=== PATIENT | male | born 1970 | race Caucasian/White ===

== ENCOUNTER 2021-02-17 05:09 | Emergency (ER) | payer SELFPAY ==
[2021-02-17] VITALS (8 sets, daily range): BP systolic 122–186; BP diastolic 62–128; PULSE 67–85; RESP 16–22; TEMP 37; O2SAT 88–98; BMI 35.4
--- NOTE | 2021-02-17 05:45 | ECG_ITS ---
[facility] Test Date: 2021-02-17 Pat Name: David Patel Department: Room: Gender: Male [employer]: : 1970 Requested By: Hernan Suarez Order Number: [id number] Sharri MD: River Salazar M.D. Measurements Intervals [place] Rate: 85 P: -40 WA: 138 QRS: 17 QRSD: 98 T: 127 QT: 387 QTc: 462 Interpretive Statements SINUS RHYTHM POSSIBLE RIGHT VENTRICULAR CONDUCTION DELAY [RSR (QR) IN V1/V2] MODERATE T-WAVE ABNORMALITY, CONSIDER LATERAL ISCHEMIA [-0.1+ mV T-WAVE IN I/aVL/V5/V6] No previous ECG available for comparison Electronically Signed On 02-17-2021 21:10:06 CDT by River Salazar M.D. [id number]
--- NOTE | 2021-02-17 05:45 | XRR_ITS ---
PROCEDURE INFORMATION: Exam: XR Chest Exam date and time: 02/17/2021 5:45 AM Age: 50 years old Clinical indication: Other: Epigastric pain; Additional info: Cp TECHNIQUE: Imaging protocol: XR of the chest. Views: 1 view. Total images: 1 COMPARISON: CT abdomen pelvis w con* [id number] 02/17/2021 6:13 AM FINDINGS: Lungs: See Heart/Mediastinum finding. Pleural spaces: Unremarkable. No pleural effusion. No pneumothorax. Heart/Mediastinum: Low lung volumes are present, accentuating cardiac size and pulmonary markings. Bones/joints: Unremarkable. XR/XR chest 1V portable [id number] IMPRESSION: Low lung volumes are present, accentuating cardiac size and pulmonary markings.
--- NOTE | 2021-02-17 05:45 | CTR_ITS ---
PROCEDURE INFORMATION: Exam: CT Abdomen And Pelvis With Contrast Exam date and time: 02/17/2021 5:45 AM Age: 50 years old Clinical indication: Abdominal pain; Localized; Upper; Additional info: Epigastric pain TECHNIQUE: Imaging protocol: Computed tomography of the abdomen and pelvis with contrast. Total images: 262 Radiation optimization: All CT scans at this facility use at least one of these dose optimization techniques: automated exposure control; mA and/or kV adjustment per patient size (includes targeted exams where dose is matched to clinical indication); or iterative reconstruction. Contrast material: OMNI 300; Contrast volume: 95 ml; Contrast route: INTRAVENOUS (IV); COMPARISON: No relevant prior studies available. RADIATION DOSE METRICS: Total DLP (mGy-cm): 1839.81 FINDINGS: Liver: Normal. No mass. Gallbladder and bile ducts: Normal. No calcified stones. No ductal dilation. Pancreas: Normal. No ductal dilation. Spleen: Normal. No splenomegaly. Adrenal glands: Normal. No mass. Kidneys and ureters: 2.1 cm incidental right renal cyst, requiring no further evaluation. Stomach and bowel: There are a few colonic diverticuli present but no evidence of diverticulitis. Appendix: The appendix has a normal size and configuration. No periappendiceal inflammatory changes are detected. No appendicolith is seen. Intraperitoneal space: Unremarkable. No free air. No significant fluid collection. Vasculature: Incidental phleboliths noted. Lymph nodes: Unremarkable. No enlarged lymph nodes. Urinary bladder: Unremarkable as visualized. Reproductive: Unremarkable as visualized. Bones/joints: Spinal degenerative changes are evident. Soft tissues: Metallic density seen in the 3rd portion of the duodenum felt to represent ingested foreign body. CT/CT abdomen pelvis w con* [id number] IMPRESSION: 1. Metallic density seen in the 3rd portion of the duodenum felt to represent ingested foreign body. 2. No acute process identified. Radiation Dose CTDIVOL = (mGy): DLP = 1839.81 (mGy-cm)
--- NOTE | 2021-02-17 05:48 | W.ED.CHESTPA ---
Documented by User: Hernan Chapa DO 02/17/21 06:12 HPI - Chest Pain General: Chief Complaint: Chest Pain Stated Complaint: abd pain; delirium Time Seen by Provider: 02/17/21 05:14 History of Present Illness: HPI narrative: 50-year-old male evidently with a coronary disease history. He notes that 5 years ago he had angioplasty in [place]. He reports chest discomfort the last couple of days. He says that he has been under a lot of stress. He is also noted epigastric pain has been increasing for the past few weeks. No fever, no cough, no trouble breathing. He notes that he is supposed to be on medication, but has been unable to fill it. MD complaint: chest pain Pertinent past history: coronary artery disease Onset (ago): day(s) Timing of current episode: constant Prior episodes: Yes Onset: during rest Pain location: substernal and epigastric Pain radiation: none Severity: moderate Quality: aching and sharp Relieving factors: nothing Associated symptoms: Reports abdominal pain; Deny dyspnea, fever(s), nausea, palpitations or vomiting Review of Systems Const: Denies: fever(s) ENMT: Denies: throat pain Card: Reports: chest pain; Denies: palpitations Resp: Denies: dyspnea, productive cough or non-productive cough GI: Reports: abdominal pain; Denies: nausea or vomiting Neuro: Denies: headache(s) PFSH ED PFSH: Social History (Updated 06/25/19 @ 16:27 by Claudia Jarrett LPN) Smoking and tobacco status: former smoker Physical Exam Const: COMMON NORMALS: patient oriented x3 GENERAL APPEARANCE: cooperative, anxious and lethargic; not frail appearing ORIENTATION/CONSCIOUSNESS: Yes lethargic HENMT: COMMON NORMALS: normocephalic HEAD & SCALP: normocephalic Eye: COMMON NORMALS: Equal, round and reactive pupils present and EOMs intact bilaterally PUPIL: Yes Equal, round and reactive pupils present Chest: COMMONS NORMALS: normal inspection of the chest Resp: COMMON NORMALS: normal respiratory effort, No use of accessory muscles and clear to auscultation bilaterally AUSCULTATION: clear to auscultation bilaterally Cardio: COMMON NORMALS: regular rate and regular rhythm RATE: regular rate RHYTHM: regular rhythm GI: COMMON NORMALS: Normal to inspection, nondistended, normoactive bowel sounds present and Soft to palpation PALPATION: Yes Soft to palpation and Yes Tenderness to palpation present (GI) (Epigastric) Neuro: COMMON NORMALS: patient oriented x3 SENSORIUM/ORIENTATION: Yes lethargic Course Vital Signs: Vital signs: Vital Signs Temperature 98.6 F 02/17/21 05:16 Pulse Rate 85 02/17/21 05:16 Respiratory Rate 22 H 02/17/21 05:57 Blood Pressure 138/90 02/17/21 06:30 Pulse Oximetry 88 L 02/17/21 06:30 MDM - Chest Pain MDM Narrative: Medical decision making narrative: 50-year-old male with a history of coronary disease. He has been noncompliant with medication, as he states he is not been able to see a PCP he reports chest pain for 2 days. He also reports epigastric pain and tenderness he states to me in the room doc if anything happens, do not bring me back . He is quite anxious on exam. He has pending lab work, EKG, and CT. he will be checked out to Dr. Lawrence at shift change. Lab Data: Labs: Lab Results 02/17/21 02/17/21 02/17/21 05:30 05:30 05:30 WBC 6.6 10^3/uL 10^3/ uL (4.0-10.0) RBC 4.79 10^6/uL 10^6 /uL (4.1-5.3) Hgb 13.8 g/dL g/dL (11.7-16.6) Hct 43.1 % % (42.0-52.0) MCV 90.0 fl fl (80-94) MCH 28.8 pg pg (28.0-34.0) MCHC 32.0 g/dL g/dL (30.0-36.0) RDW 13.7 % % (12.1-15.1) Plt Count 269 10^3/cmm 10^3 /cmm (130-400) MPV 8.7 fL fL (7.4-10.4) Neut % (Auto) 68.2 % % Lymph % (Auto) 22.9 % % [place] % (Auto) 6.9 % % Eos % (Auto) 0.8 % % Baso % (Auto) 0.6 % % Neut # (Auto) 4.53 10^3/uL 10^3 /uL (1.8-7.7) Lymph # (Auto) 1.5 10^3/uL 10^3/ uL (0.8-4.8) [place] # (Auto) 0.5 10^3/uL 10^3/ uL (0.2-0.9) Eos # (Auto) 0.1 10^3/uL 10^3/ uL (0.0-0.8) Baso # (Auto) 0.0 10^3/uL 10^3/ uL (0.0-0.1) Nucleated RBC % (a uto) 0 % % Nucleated RBCs # 0.0 /100WBC /100W BC PT 13.90 SECONDS SEC ONDS (12.1-14.9) INR 1.04 (0.8-1.2) APTT 26.8 SECONDS SECO NDS (23.9-36.7) Sodium 135 mmol/L L mmol /L (136-145) Potassium 3.7 mmol/L mmol/L (3.5-5.1) Chloride 102 mmol/L mmol/L (98-107) Carbon Dioxide 22 mmol/L mmol/L (22-29) Anion Gap 14.7 (5-19) BUN 13 mg/dL mg/dL (6-20) Creatinine 0.7 mg/dL mg/dL (0.7-1.2) GFR Calculation 118.9 mL/min mL/m in (90-130) Glucose 117 mg/dL H mg/dL (65-115) Calculated Osmolal ity 281 mOsm/kg L mOs m/kg (285-295) Calcium 8.9 mg/dL mg/dL (8.5-10.5) Total Bilirubin 0.5 mg/dL mg/dL (0.15-1.2) AST 20 U/L U/L (0-40) ALT 20 U/L U/L (0-41) Alkaline Phosphata se 74 IU/L IU/L (40-130) Creatine Kinase 378 U/L H* U/L (39-308) Troponin T Baselin e Troponin T 120 Min habematolel Delta Troponin T NT-Pro-B Natriuret Pep 60 pg/mL pg/mL (0-125) Total Protein 7.2 g/dL g/dL (6.6-8.7) Albumin 4.1 g/dL g/dL (3.5-5.2) Globulin 3.1 g/dL g/dL (1.3-4.6) Urine Color Urine Appearance Urine pH Ur Specific Gravit y Urine Protein Urine Glucose (UA) Urine Ketones Urine Blood Urine Nitrate Urine Bilirubin Urine Urobilinogen Ur Leukocyte Romana ase Urine Opiates Scre en Ur Barbiturates Sc reen Ur Phencyclidine S crn Ur Amphetamines Sc reen U Benzodiazepines Scrn Urine Cocaine Scre en U Marijuana (THC) Screen Ethyl Alcohol < 10 mg/dL mg/dL (0-10) 02/17/21 02/17/21 02/17/21 05:30 07:56 08:00 WBC RBC Hgb Hct MCV MCH MCHC RDW Plt Count MPV Neut % (Auto) Lymph % (Auto) [place] % (Auto) Eos % (Auto) Baso % (Auto) Neut # (Auto) Lymph # (Auto) [place] # (Auto) Eos # (Auto) Baso # (Auto) Nucleated RBC % (a uto) Nucleated RBCs # PT INR APTT Sodium Potassium Chloride Carbon Dioxide Anion Gap BUN Creatinine GFR Calculation Glucose Calculated Osmolal ity Calcium Total Bilirubin AST ALT Alkaline Phosphata se Creatine Kinase Troponin T Baselin e 12 ng/L ng/L (0-15) Troponin T 120 Min habematolel 11.75 ng/L ng/L (0-15) Delta Troponin T -0.25 ABS# L ABS# (0-10) NT-Pro-B Natriuret Pep Total Protein Albumin Globulin Urine Color Straw (Yellow) Urine Appearance Clear (CLEAR) Urine pH 5 (5-7) Ur Specific Gravit y 1.025 (1.005-1.030) Urine Protein Neg (Negative) Urine Glucose (UA) Norm (Normal) Urine Ketones Negative (Negative) Urine Blood Neg (Negative) Urine Nitrate Negative (Negative) Urine Bilirubin Neg (Negative) Urine Urobilinogen Norm mg/dL mg/dL (Negative) Ur Leukocyte Romana ase Negative (Negative) Urine Opiates Scre en Ur Barbiturates Sc reen Ur Phencyclidine S crn Ur Amphetamines Sc reen U Benzodiazepines Scrn Urine Cocaine Scre en U Marijuana (THC) Screen Ethyl Alcohol 02/17/21 08:00 WBC RBC Hgb Hct MCV MCH MCHC RDW Plt Count MPV Neut % (Auto) Lymph % (Auto) [place] % (Auto) Eos % (Auto) Baso % (Auto) Neut # (Auto) Lymph # (Auto) [place] # (Auto) Eos # (Auto) Baso # (Auto) Nucleated RBC % (a uto) Nucleated RBCs # PT INR APTT Sodium Potassium Chloride Carbon Dioxide Anion Gap BUN Creatinine GFR Calculation Glucose Calculated Osmolal ity Calcium Total Bilirubin AST ALT Alkaline Phosphata se Creatine Kinase Troponin T Baselin e Troponin T 120 Min habematolel Delta Troponin T NT-Pro-B Natriuret Pep Total Protein Albumin Globulin Urine Color Urine Appearance Urine pH Ur Specific Gravit y Urine Protein Urine Glucose (UA) Urine Ketones Urine Blood Urine Nitrate Urine Bilirubin Urine Urobilinogen Ur Leukocyte Romana ase Urine Opiates Scre en Negative ng/mL ng /mL (Negative) Ur Barbiturates Sc reen Negative ng/mL ng /mL (Negative) Ur Phencyclidine S crn Negative ng/mL ng /mL (Negative) Ur Amphetamines Sc reen Positive ng/mL H ng/mL (Negative) U Benzodiazepines Scrn Negative ng/mL ng /mL (Negative) Urine Cocaine Scre en Negative ng/mL ng /mL (Negative) U Marijuana (THC) Screen Negative ng/mL ng /mL (Negative) Ethyl Alcohol Discharge Plan Discharge Patient Disposition: Home Clinical Impression: Chest pain, Hematemesis, Foreign body ingestion Condition: Stable Prescriptions: New aspirin 81 mg tablet,delayed release (DR/EC) 81 mg PO DAILY Qty: 30 RF: 0 isosorbide mononitrate 30 mg tablet extended release 24 hr 30 mg PO DAILY Qty: 30 RF: 1 Protonix 40 mg tablet,delayed release (DR/EC) 40 mg PO DAILY 56 Days RF: 0 nitroglycerin 0.4 mg tablet, sublingual 0.4 mg sublingual Q5M PRN (Reason: chest pain) Qty: 30 RF: 0 Discharge Orders: Discharge ED (Routine); Ordered 02/17/21 Ordered By: Tone Lawrence Discharge Diet: Clear Liquid Patient Instructions: Opioid Safety Activity Restrictions/Additional Instructions: Clear liquid diet for 24 to 48 hours. Case management will call you to make arrangements for a stress test as well as referral to surgery for an EGD. If you have any worsening or change or recurrence of symptoms return to emergency room immediately. Sign Out Sign Out Data: Patient Sign Out occurred on 02/17/21 at 06:30. Patient's care was discussed, and care was transferred from to Tone Lawrence DO. Coding Level of Care Code ED Customs Inspector for Chg Fwd Exam Detailed Documented by User: Tone Lawrence DO 02/17/21 08:48 HPI - Chest Pain General: Chief Complaint: Chest Pain Stated Complaint: abd pain; delirium Time Seen by Provider: 02/17/21 05:14 PFSH ED PFSH: Social History (Updated 06/25/19 @ 16:27 by Claudia Jarrett LPN) Smoking and tobacco status: former smoker Course Vital Signs: Vital signs: Vital Signs Temperature 98.6 F 02/17/21 05:16 Pulse Rate 85 02/17/21 05:16 Respiratory Rate 22 H 02/17/21 05:57 Blood Pressure 138/90 02/17/21 06:30 Pulse Oximetry 88 L 02/17/21 06:30 MDM - Chest Pain MDM Narrative: Medical decision making narrative: Reviewed labs and history on the patient. Also reviewed imaging and EKGs. Nothing acute on EKG his troponins are negative. In talking the patient has a known history of coronary disease previous stenting. Was about 4 5 years ago has not had any evaluation since. Lately 2-3 times a week he will have chest pain sometimes while at rest sometimes with exertion he had been using sublingual nitro for which causes it to resolve other times what since he ran out of the sublingual nitro he just sits and rest it will go away in 20 to 30 minutes. Advised the patient he should be admitted for evaluation he declines. Reviewed with him why is important and the risks of not being evaluated he still wants to go home and. He was reassured and encouraged at any point if he has recurrence of symptoms to return. Aubrie start him on Imdur 30 mg daily have him start taking a baby aspirin daily and also refilled his sublingual nitroglycerin. In addition to this he had reported some very scant hematemesis. His hemoglobin is stable and his BUN is not elevated on think he has any evidence of active bleeding. We will put him on a clear liquid diet have him start Protonix and set him up to get an EGD with general surgery next week. If he has any increasing hematemesis he should return as well. Also note at the time of discharge there is a notation on the chart on the vitals that the patient had 88% O2 sat on room air this was an error his O2 sat has remained in mid and upper 90s throughout his stay believe is a typo and he was actually at 98%. Reviewed with the nurse she had not noted any hypoxia during his stay either. Incidental finding on CT of ingested foreign body appears to be an air palate discussed with patient. This should pass spontaneously through the GI tract no intervention needed Lab Data: Labs: Lab Results 02/17/21 02/17/21 02/17/21 05:30 05:30 05:30 WBC 6.6 10^3/uL 10^3/ uL (4.0-10.0) RBC 4.79 10^6/uL 10^6 /uL (4.1-5.3) Hgb 13.8 g/dL g/dL (11.7-16.6) Hct 43.1 % % (42.0-52.0) MCV 90.0 fl fl (80-94) MCH 28.8 pg pg (28.0-34.0) MCHC 32.0 g/dL g/dL (30.0-36.0) RDW 13.7 % % (12.1-15.1) Plt Count 269 10^3/cmm 10^3 /cmm (130-400) MPV 8.7 fL fL (7.4-10.4) Neut % (Auto) 68.2 % % Lymph % (Auto) 22.9 % % [place] % (Auto) 6.9 % % Eos % (Auto) 0.8 % % Baso % (Auto) 0.6 % % Neut # (Auto) 4.53 10^3/uL 10^3 /uL (1.8-7.7) Lymph # (Auto) 1.5 10^3/uL 10^3/ uL (0.8-4.8) [place] # (Auto) 0.5 10^3/uL 10^3/ uL (0.2-0.9) Eos # (Auto) 0.1 10^3/uL 10^3/ uL (0.0-0.8) Baso # (Auto) 0.0 10^3/uL 10^3/ uL (0.0-0.1) Nucleated RBC % (a uto) 0 % % Nucleated RBCs # 0.0 /100WBC /100W BC PT 13.90 SECONDS SEC ONDS (12.1-14.9) INR 1.04 (0.8-1.2) APTT 26.8 SECONDS SECO NDS (23.9-36.7) Sodium 135 mmol/L L mmol /L (136-145) Potassium 3.7 mmol/L mmol/L (3.5-5.1) Chloride 102 mmol/L mmol/L (98-107) Carbon Dioxide 22 mmol/L mmol/L (22-29) Anion Gap 14.7 (5-19) BUN 13 mg/dL mg/dL (6-20) Creatinine 0.7 mg/dL mg/dL (0.7-1.2) GFR Calculation 118.9 mL/min mL/m in (90-130) Glucose 117 mg/dL H mg/dL (65-115) Calculated Osmolal ity 281 mOsm/kg L mOs m/kg (285-295) Calcium 8.9 mg/dL mg/dL (8.5-10.5) Total Bilirubin 0.5 mg/dL mg/dL (0.15-1.2) AST 20 U/L U/L (0-40) ALT 20 U/L U/L (0-41) Alkaline Phosphata se 74 IU/L IU/L (40-130) Creatine Kinase 378 U/L H* U/L (39-308) Troponin T Baselin e Troponin T 120 Min habematolel Delta Troponin T NT-Pro-B Natriuret Pep 60 pg/mL pg/mL (0-125) Total Protein 7.2 g/dL g/dL (6.6-8.7) Albumin 4.1 g/dL g/dL (3.5-5.2) Globulin 3.1 g/dL g/dL (1.3-4.6) Urine Color Urine Appearance Urine pH Ur Specific Gravit y Urine Protein Urine Glucose (UA) Urine Ketones Urine Blood Urine Nitrate Urine Bilirubin Urine Urobilinogen Ur Leukocyte Romana ase Urine Opiates Scre en Ur Barbiturates Sc reen Ur Phencyclidine S crn Ur Amphetamines Sc reen U Benzodiazepines Scrn Urine Cocaine Scre en U Marijuana (THC) Screen Ethyl Alcohol < 10 mg/dL mg/dL (0-10) 02/17/21 02/17/21 02/17/21 05:30 07:56 08:00 WBC RBC Hgb Hct MCV MCH MCHC RDW Plt Count MPV Neut % (Auto) Lymph % (Auto) [place] % (Auto) Eos % (Auto) Baso % (Auto) Neut # (Auto) Lymph # (Auto) [place] # (Auto) Eos # (Auto) Baso # (Auto) Nucleated RBC % (a uto) Nucleated RBCs # PT INR APTT Sodium Potassium Chloride Carbon Dioxide Anion Gap BUN Creatinine GFR Calculation Glucose Calculated Osmolal ity Calcium Total Bilirubin AST ALT Alkaline Phosphata se Creatine Kinase Troponin T Baselin e 12 ng/L ng/L (0-15) Troponin T 120 Min habematolel 11.75 ng/L ng/L (0-15) Delta Troponin T -0.25 ABS# L ABS# (0-10) NT-Pro-B Natriuret Pep Total Protein Albumin Globulin Urine Color Straw (Yellow) Urine Appearance Clear (CLEAR) Urine pH 5 (5-7) Ur Specific Gravit y 1.025 (1.005-1.030) Urine Protein Neg (Negative) Urine Glucose (UA) Norm (Normal) Urine Ketones Negative (Negative) Urine Blood Neg (Negative) Urine Nitrate Negative (Negative) Urine Bilirubin Neg (Negative) Urine Urobilinogen Norm mg/dL mg/dL (Negative) Ur Leukocyte Romana ase Negative (Negative) Urine Opiates Scre en Ur Barbiturates Sc reen Ur Phencyclidine S crn Ur Amphetamines Sc reen U Benzodiazepines Scrn Urine Cocaine Scre en U Marijuana (THC) Screen Ethyl Alcohol 02/17/21 08:00 WBC RBC Hgb Hct MCV MCH MCHC RDW Plt Count MPV Neut % (Auto) Lymph % (Auto) [place] % (Auto) Eos % (Auto) Baso % (Auto) Neut # (Auto) Lymph # (Auto) [place] # (Auto) Eos # (Auto) Baso # (Auto) Nucleated RBC % (a uto) Nucleated RBCs # PT INR APTT Sodium Potassium Chloride Carbon Dioxide Anion Gap BUN Creatinine GFR Calculation Glucose Calculated Osmolal ity Calcium Total Bilirubin AST ALT Alkaline Phosphata se Creatine Kinase Troponin T Baselin e Troponin T 120 Min habematolel Delta Troponin T NT-Pro-B Natriuret Pep Total Protein Albumin Globulin Urine Color Urine Appearance Urine pH Ur Specific Gravit y Urine Protein Urine Glucose (UA) Urine Ketones Urine Blood Urine Nitrate Urine Bilirubin Urine Urobilinogen Ur Leukocyte Romana ase Urine Opiates Scre en Negative ng/mL ng /mL (Negative) Ur Barbiturates Sc reen Negative ng/mL ng /mL (Negative) Ur Phencyclidine S crn Negative ng/mL ng /mL (Negative) Ur Amphetamines Sc reen Positive ng/mL H ng/mL (Negative) U Benzodiazepines Scrn Negative ng/mL ng /mL (Negative) Urine Cocaine Scre en Negative ng/mL ng /mL (Negative) U Marijuana (THC) Screen Negative ng/mL ng /mL (Negative) Ethyl Alcohol Discharge Plan Discharge Patient Disposition: Home Clinical Impression: Chest pain, Hematemesis, Foreign body ingestion Condition: Stable Prescriptions: New aspirin 81 mg tablet,delayed release (DR/EC) 81 mg PO DAILY Qty: 30 RF: 0 isosorbide mononitrate 30 mg tablet extended release 24 hr 30 mg PO DAILY Qty: 30 RF: 1 Protonix 40 mg tablet,delayed release (DR/EC) 40 mg PO DAILY 56 Days RF: 0 nitroglycerin 0.4 mg tablet, sublingual 0.4 mg sublingual Q5M PRN (Reason: chest pain) Qty: 30 RF: 0 Discharge Orders: Discharge ED (Routine); Ordered 02/17/21 Ordered By: Tone Lawrence Discharge Diet: Clear Liquid Patient Instructions: Opioid Safety Activity Restrictions/Additional Instructions: Clear liquid diet for 24 to 48 hours. Case management will call you to make arrangements for a stress test as well as referral to surgery for an EGD. If you have any worsening or change or recurrence of symptoms return to emergency room immediately. Sign Out Sign Out Data: Patient Sign Out occurred on 02/17/21 at 06:30. Patient's care was discussed, and care was transferred from to Tone Lawrence DO. Coding Level of Care Code ED Customs Inspector for Chg Fwd Exam Detailed
[2021-02-17 05:52] LABS: Basophils % 0.6 %; Eosinophils # 0.1 10^3/uL (0.0-0.8); Eosinophils % 0.8 %; Hematocrit 43.1 % (42.0-52.0); Hemoglobin 13.8 g/dL (11.7-16.6); Lymphocytes # 1.5 10^3/uL (0.8-4.8); Lymphocytes % 22.9 %; Mean Corpuscular Hemoglobin 28.8 pg (28.0-34.0); Mean Platelet Volume 8.7 fL (7.4-10.4); Monocytes # 0.5 10^3/uL (0.2-0.9); Monocytes % 6.9 %; Neutrophils # 4.53 10^3/uL (1.8-7.7); Neutrophils % 68.2 %; Nucleated Red Blood Cells % 0 %; Platelet Count 269 10^3/cmm (130-400); Red Blood Count 4.79 10^6/uL (4.1-5.3); Red Cell Distribution Width 13.7 % (12.1-15.1); White Blood Count 6.6 10^3/uL (4.0-10.0)
[2021-02-17 06:03] LABS: INR 1.04 (0.8-1.2)
[2021-02-17 06:04] LABS: Partial Thromboplastin Time 26.8 SECONDS (23.9-36.7)
[2021-02-17] MEDS: nitroglycerin 1 gm/inch oint Pkt 2 INCH TOPICAL (06:04)
[2021-02-17] MEDS: lidocaine 2% viscous 15 ML, aluminum-mag hydrox-simethicon 30 ML, sucralfate oral liq 1 GM PO (06:04)
[2021-02-17] MEDS: labetalol 5 mg/mL SDV 20mL 20 MG IVP (06:05)
[2021-02-17 06:12] LABS: Troponin(5th) Baseline 12 ng/L (0-15)
[2021-02-17] MEDS: iohexol 300 mg/mL 100 mL Btl IV (06:15)
[2021-02-17 06:19] LABS: Alanine Aminotransferase 20 U/L (0-41); Albumin Level 4.1 g/dL (3.5-5.2); Alkaline Phosphatase 74 IU/L (40-130); Anion Gap 14.7 (5-19); Aspartate Amino Transferase 20 U/L (0-40); Blood Urea Nitrogen 13 mg/dL (6-20); Calcium 8.9 mg/dL (8.5-10.5); Carbon Dioxide 22 mmol/L (22-29); Chloride 102 mmol/L (98-107); Creatinine Clr Calc Pharmacy 151.8029; Globulin 3.1 g/dL (1.3-4.6); Glomerular Filtration Rate 118.9 mL/min (90-130); Glucose 117 mg/dL (65-115); NT Pro B Type Natriuretic Pept 60 pg/mL (0-125); Osmolality Calculated 281 mOsm/kg (285-295); Potassium 3.7 mmol/L (3.5-5.1); Sodium 135 mmol/L (136-145); Total Bilirubin 0.5 mg/dL (0.15-1.2); Total Protein 7.2 g/dL (6.6-8.7)
[2021-02-17 06:20] LABS: Alcohol Level < 10 mg/dL (0-10); Creatine Phosphokinase 378 U/L (39-308)
[2021-02-17] MEDS: sodium chloride 0.9% 1,000 ML 999 ML IV (07:10)
--- NOTE | 2021-02-17 07:23 | PC.NURSE ---
Introduced self to pt and SO and explained that this nurse would be taking over his care. Pt SO stated pt did not want to be here anymore, that he just wanted his meds and to go home . informed pt that NS had been ordered for him and that it would help with his heart rate. he asked how long it would take then stated he would stay to receive hydration. th
--- NOTE | 2021-02-17 07:45 | ECG_ITS ---
[facility] Test Date: 2021-02-17 Pat Name: David Patel Department: Room: Gender: Male Mobile Solutions Architect: : 1970 Requested By: Hernan Suarez Order Number: [id number] Sharri MD: River Salazar M.D. Measurements Intervals [place] Rate: 67 P: 54 MD: 140 QRS: 35 QRSD: 98 T: 142 QT: 454 QTc: 480 Interpretive Statements SINUS RHYTHM WITH FREQUENT ECTOPIC PREMATURE COMPLEXES POSSIBLE RIGHT VENTRICULAR CONDUCTION DELAY [RSR (QR) IN V1/V2] MODERATE T-WAVE ABNORMALITY, CONSIDER LATERAL ISCHEMIA [-0.1+ mV T-WAVE IN I/aVL/V5/V6] MODERATE T-WAVE ABNORMALITY, CONSIDER INFERIOR ISCHEMIA [-0.1+ mV T-WAVE IN II/aVF] Compared to ECG 02/17/2021 05:36:23 No significant changes Electronically Signed On 02-17-2021 21:13:48 CDT by River Salazar M.D. [id number]
[2021-02-17 08:07] LABS: Add Urine Microscopic? NO; Charge for UA Resulting for Rev
[2021-02-17 08:10] LABS: Bilirubin Urine Neg (Negative); Blood Urine Neg (Negative); Glucose Urine UA Norm (Normal); Ketones Urine Negative (Negative); Leukocyte Esterase Urine Negative (Negative); Nitrate Urine Negative (Negative); Protein Urine Neg (Negative); Specific Gravity, Urine 1.025 (1.005-1.030); Urine Appearance Clear (CLEAR); Urine Color Straw (Yellow); Urobilinogen Urine Norm (Negative); pH Urine 5 (5-7)
[2021-02-17 08:19] LABS: Amphetamines Screen Urine Positive (Negative); Barbiturates Screen Urine Negative (Negative); Benzodiazepines Screen Urine Negative (Negative); Cocaine Screen Urine Negative (Negative); Opiate Screen Urine Negative (Negative); PCP Screen Urine Negative (Negative); THC Screen Urine Negative (Negative)
[2021-02-17 08:25] LABS: Troponin 5 2HR 11.75 ng/L (0-15)
[2021-02-17 08:26] LABS: Troponin 5 2HR Delta -0.25 ABS# (0-10)
--- NOTE | 2021-02-20 09:39 | DCPLANNER ---
trust manager assistant had message to schedule a follow up appointment for patient with heart care. trust manager assistant called heart care, spoke with Erika, gave clinic patients information. A follow up appointment was scheduled for , March 08, 2021 at 1:[address] Newby. trust manager assistant called phone number [phone], unable to speak with patient at this time, unable to leave a voicemail for patient. trust manager assistant sent patient a letter with appointment information. trust manager assistant also had message to schedule an outpatient stress test, and a followup appointment for patient with general surgery. trust manager assistant faxed signed order to stress test to centralized scheduling, who will call patient with appointment information. trust manager assistant also emailed patients information to Kimberley at [facility] General Surgery. Patients information will be printed and reviewed. Clinic will call patient with appointment information. trust manager assistant included in letter the phone number to centralized scheduling and general surgery for patient to call for appointment information.
--- NOTE | 2021-02-28 15:14 | DCPLANNER ---
General surgery emailed insurance case manager stating that clinic attempted to call patient, was unable to reach patient to schedule an appointment, mailed patient a letter, informing patient to call the clinic to schedule a follow up appointment. Patient has a stress test scheduled for Saturday, March 13, 2021 at 9:15 at 9:15. Centralized scheduling will call patient with appointment information.
--- NOTE | 2021-04-05 15:32 | DCPLANNER ---
Patient had a follow up appointments scheduled with [facility] and a stress test - patient did not attend either one of the appointments.
== END 2021-02-17 08:42 | disposition home or self-care (01) ==
PROVIDERS: Emergency Medicine; Emergency Provider Family Medicine
DX: R07.9 Chest pain, unspecified (principal); K92.0 Hematemesis; T18.9XXA Foreign body of alimentary tract, part unspecified, initial encounter; X58.XXXA Exposure to other specified factors, initial encounter; Z79.82 Long term (current) use of aspirin; Z87.891 Personal history of nicotine dependence
CPT/HCPCS: 36415; 71045; 74177; 80053; 80306; 80307; 81003; 82550; 83880; 84484; 85025; 85610; 85730; 93005; 96361; 96374; 99284; J3490; J7030; Q9967

== ENCOUNTER 2021-08-30 16:46 | Emergency (ER) | payer SELFPAY ==
[2021-08-30 16:58] VITALS: BP 217/130; PULSE 93; RESP 18; TEMP 36.8; O2SAT 96; BMI 34.0
--- NOTE | 2021-08-30 17:21 | ED_ITS ---
Documented by User: Tone Lawrence DO 08/31/21 06:08 HPI - General Adult General: Chief complaint: General Medical Stated complaint: cough/SOB/nausea/vomiting/abdominal pain Time Seen by Provider: 08/30/21 17:08 Source: patient Mode of arrival: ambulatory Limitations: no limitations History of Present Illness: Onset (ago): week(s) Location: chest and abdomen Pain Consistency: constant Relieving factors: none Exacerbating factors: none Associated symptoms: Reports chest pain, cough, dyspnea, nausea and vomiting (Occasional); Deny confusion, diaphoresis, decreased appetite, fevers/chills, headache(s), malaise, rash, palpitations, seizures, short of breath, syncope or weakness Treatments prior to arrival: none Review of Systems Const: Reports: body aches and change in appetite; Denies: fever(s), chills, malaise or diaphoresis ENMT: Reports: throat pain Card: Reports: chest pain; Denies: palpitations or syncope Resp: Reports: dyspnea GI: Reports: abdominal pain, nausea and vomiting (Occasional) : Reports: flank pain; Denies: difficulty urinating, dysuria or urinary frequency Skin/Breast: Denies: rash Neuro: Denies: headache(s) or confusion PFSH ED PFSH: Medical History (Updated 08/30/21 @ 19:30 by Audrey Sampson MD) Coronary artery disease Hypertension Social History (Updated 06/25/19 @ 16:27 by Claudia Jarrett LPN) Smoking and tobacco status: former smoker Physical Exam Const: COMMON NORMALS: no acute distress GENERAL APPEARANCE: cooperative and comfortable ORIENTATION/CONSCIOUSNESS: Yes awake, Yes oriented to person, Yes oriented to place and Yes oriented to time HENMT: COMMON NORMALS: normocephalic, atraumatic and hearing grossly normal bilaterally HEAD & SCALP: normocephalic and atraumatic Resp: COMMON NORMALS: normal respiratory effort, No retractions, No use of accessory muscles and clear to auscultation bilaterally AUSCULTATION: clear to auscultation bilaterally Cardio: COMMON NORMALS: regular rate, regular rhythm and No murmurs present (Cardio) RATE: regular rate RHYTHM: regular rhythm GI: COMMON NORMALS: No hepatosplenomegaly present AUSCULTATION: Yes normoactive bowel sounds PALPATION: Yes Tenderness to palpation present (GI) (Mild epigastric), No Guarding due to palpation present (GI) and Yes No hepatosplenomegaly present : BLADDER/KIDNEY EXAM: Yes CVA tenderness on the right Back/Pelvis: GENERAL BACK: Yes CVA tenderness Extremity: COMMON NORMALS: normal to inspection, capillary refill normal, no clubbing, cyanosis or edema, no calf tenderness and no pedal edema Neuro: SENSORIUM/ORIENTATION: Yes oriented to person, Yes oriented to place and Yes oriented to time Skin: COMMON NORMALS: no rashes or lesions noted GENERAL SKIN EXAM: no rashes or lesions noted Course Vital Signs: Vital signs: Vital Signs Temperature 99.1 F 08/30/21 19:13 Pulse Rate 72 08/30/21 19:13 Respiratory Rate 16 08/30/21 19:13 Blood Pressure 184/119 08/30/21 19:13 Pulse Oximetry 93 08/30/21 19:13 [facility] - General Adult Medical Decision Making Care signed out to Dr. Sampson at change of shift. See final notes for diagnosis and disposition. Patient presents with abdominal pain along with hypertension he is hypertensive as he is very noncompliant he is out of all of his medicines currently CT of his abdomen is normal blood works all normal he is requesting discharge his initial troponin was normal I feel he stable for discharge we will get him follow-up with a PCP and he is return if worsening. Medical Records I reviewed the patient's medical records. Lab Data I reviewed the patient's lab results. : 08/30/21 17:50 08/30/21 17:50 Radiology Impressions Abdomen/Pelvis CT 08/30/21 17:37 IMPRESSION: 1. Diffuse, mild wall thickening of the bladder. In the correct clinical setting, this may suggest cystitis. Recommend correlation with laboratory findings. Alternatively, this may be secondary to chronic outlet obstruction. 2. Scattered diverticula in the sigmoid colon. No evidence for diverticulitis. 3. Incidental/nonacute findings are listed in the report. COMMENTS: Consistent with the [employer]'s Incidental Findings Committee white paper (J Am Rebecca Radiol 2018): Any incidental renal lesion less than 1 cm or classified as too small to characterize, or any incidental cystic renal lesion characterized as simple-appearing, is likely benign. No follow-up imaging is recommended for these lesions per consensus recommendations based on imaging criteria. Laboratory Results WBC 6.5 10^3/uL (4.0-10.0) 08/30/21 17:50 RBC 5.31 10^6/uL (4.1-5.3) H 08/30/21 17:50 Hgb 15.5 g/dL (11.7-16.6) 08/30/21 17:50 Hct 47.6 % (42.0-52.0) 08/30/21 17:50 MCV 89.6 fl (80-94) 08/30/21 17:50 MCH 29.2 pg (28.0-34.0) 08/30/21 17:50 MCHC 32.6 g/dL (30.0-36.0) 08/30/21 17:50 RDW 13.9 % (12.1-15.1) 08/30/21 17:50 Plt Count 263 10^3/cmm (130-400) 08/30/21 17:50 MPV 8.7 fL (7.4-10.4) 08/30/21 17:50 Neut % (Auto) 59.0 % 08/30/21 17:50 Lymph % (Auto) 25.2 % 08/30/21 17:50 [place] % (Auto) 13.0 % 08/30/21 17:50 Eos % (Auto) 1.8 % 08/30/21 17:50 Baso % (Auto) 0.5 % 08/30/21 17:50 Neut # (Auto) 3.85 10^3/uL (1.8-7.7) 08/30/21 17:50 Lymph # (Auto) 1.6 10^3/uL (0.8-4.8) 08/30/21 17:50 [place] # (Auto) 0.9 10^3/uL (0.2-0.9) 08/30/21 17:50 Eos # (Auto) 0.1 10^3/uL (0.0-0.8) 08/30/21 17:50 Baso # (Auto) 0.0 10^3/uL (0.0-0.1) 08/30/21 17:50 Nucleated RBC % (auto) 0 % 08/30/21 17:50 Nucleated RBCs # 0.0 /100WBC 08/30/21 17:50 Sodium 140 mmol/L (136-145) 08/30/21 17:50 Potassium 4.0 mmol/L (3.5-5.1) 08/30/21 17:50 Chloride 103 mmol/L (98-107) 08/30/21 17:50 Carbon Dioxide 26 mmol/L (22-29) 08/30/21 17:50 Anion Gap 15.0 (5-19) 08/30/21 17:50 BUN 14 mg/dL (6-20) 08/30/21 17:50 Creatinine 0.8 mg/dL (0.7-1.2) 08/30/21 17:50 GFR Calculation 101.5 mL/min (90-130) 08/30/21 17:50 Glucose 92 mg/dL (65-115) 08/30/21 17:50 Calculated Osmolality 290 mOsm/kg (285-295) 08/30/21 17:50 Calcium 9.8 mg/dL (8.5-10.5) 08/30/21 17:50 Total Bilirubin 0.3 mg/dL (0.15-1.2) 08/30/21 17:50 AST 20 U/L (0-40) 08/30/21 17:50 ALT 25 U/L (0-41) 08/30/21 17:50 Alkaline Phosphatase 84 IU/L (40-130) 08/30/21 17:50 Troponin T Baseline 9 ng/L (0-15) 08/30/21 17:50 Total Protein 7.9 g/dL (6.6-8.7) 08/30/21 17:50 Albumin 4.7 g/dL (3.5-5.2) 08/30/21 17:50 Globulin 3.2 g/dL (1.3-4.6) 08/30/21 17:50 Lipase 33 U/L (13-60) 08/30/21 17:50 Urine Color Yellow (Yellow) 08/30/21 18:50 Urine Appearance Clear (CLEAR) 08/30/21 18:50 Urine pH 6.5 (5-7) 08/30/21 18:50 Ur Specific [place] 1.010 (1.005-1.030) 08/30/21 18:50 Urine Protein Neg (Negative) 08/30/21 18:50 Urine Glucose (UA) Norm (Normal) 08/30/21 18:50 Urine Ketones Negative (Negative) 08/30/21 18:50 Urine Blood Neg (Negative) 08/30/21 18:50 Urine Nitrate Negative (Negative) 08/30/21 18:50 Urine Bilirubin Neg (Negative) 08/30/21 18:50 Urine Urobilinogen Norm mg/dL (Negative) 08/30/21 18:50 Ur Leukocyte Esterase Negative (Negative) 08/30/21 18:50 EKG Data EKG 1: Computer generated interpretation: Abdomen/Pelvis CT 08/30/21 17:37 IMPRESSION: 1. Diffuse, mild wall thickening of the bladder. In the correct clinical setting, this may suggest cystitis. Recommend correlation with laboratory findings. Alternatively, this may be secondary to chronic outlet obstruction. 2. Scattered diverticula in the sigmoid colon. No evidence for diverticulitis. 3. Incidental/nonacute findings are listed in the report. COMMENTS: Consistent with the [employer]'s Incidental Findings Committee white paper (J Am Rebecca Radiol 2018): Any incidental renal lesion less than 1 cm or classified as too small to characterize, or any incidental cystic renal lesion characterized as simple-appearing, is likely benign. No follow-up imaging is recommended for these lesions per consensus recommendations based on imaging criteria. Discharge Plan Discharge Patient Disposition: Home Clinical Impression: Abdominal pain, Hypertension Condition: Stable Prescriptions: New ondansetron 4 mg tablet,disintegrating 4 mg PO Q6H PRN (Reason: nausea and vomiting) Qty: 14 0RF Norvasc 5 mg tablet 5 mg PO BID Qty: 90 0RF lisinopril 10 mg tablet 10 mg PO DAILY Qty: 60 0RF Naprosyn 500 mg tablet 500 mg PO BID PRN (Reason: pain) Qty: 20 0RF Discharge Orders: Discharge ED (Routine); Ordered 08/30/21 Ordered By: Audrey Sampson Discharge Diet: Advance as tolerated Discharge Activity: Resume usual activity Patient Instructions: Abdominal Pain (ED) Coding Level of Care Code ED Settlement Agent for Chg Fwd Exam Comprehensive Documented by User: Audrey Sampson MD 08/30/21 19:50 HPI - General Adult General: Chief complaint: General Medical Stated complaint: cough/SOB/nausea/vomiting/abdominal pain Time Seen by Provider: 08/30/21 17:08 History of Present Illness: . [facility] ED PFSH: Medical History (Updated 08/30/21 @ 19:30 by Audrey Sampson MD) Coronary artery disease Hypertension Social History (Updated 06/25/19 @ 16:27 by Claudia Jarrett LPN) Smoking and tobacco status: former smoker Course Vital Signs: Vital signs: Vital Signs Temperature 99.1 F 08/30/21 19:13 Pulse Rate 72 08/30/21 19:13 Respiratory Rate 16 08/30/21 19:13 Blood Pressure 184/119 08/30/21 19:13 Pulse Oximetry 93 08/30/21 19:13 MDM - General Adult Medical Decision Making Care signed out to Dr. Sampson at change of shift. See final notes for diagnosis and disposition. Patient presents with abdominal pain along with hypertension he is hypertensive as he is very noncompliant he is out of all of his medicines currently CT of his abdomen is normal blood works all normal he is requesting discharge his initial troponin was normal I feel he stable for discharge we will get him follow-up with a PCP and he is return if worsening. Lab Data : 08/30/21 17:50 08/30/21 17:50 Radiology Impressions Abdomen/Pelvis CT 08/30/21 17:37 IMPRESSION: 1. Diffuse, mild wall thickening of the bladder. In the correct clinical setting, this may suggest cystitis. Recommend correlation with laboratory findings. Alternatively, this may be secondary to chronic outlet obstruction. 2. Scattered diverticula in the sigmoid colon. No evidence for diverticulitis. 3. Incidental/nonacute findings are listed in the report. COMMENTS: Consistent with the [employer] [employer]'s Incidental Findings Committee white paper (J Am Rebecca Radiol 2018): Any incidental renal lesion less than 1 cm or classified as too small to characterize, or any incidental cystic renal lesion characterized as simple-appearing, is likely benign. No follow-up imaging is recommended for these lesions per consensus recommendations based on imaging criteria. Laboratory Results WBC 6.5 10^3/uL (4.0-10.0) 08/30/21 17:50 RBC 5.31 10^6/uL (4.1-5.3) H 08/30/21 17:50 Hgb 15.5 g/dL (11.7-16.6) 08/30/21 17:50 Hct 47.6 % (42.0-52.0) 08/30/21 17:50 MCV 89.6 fl (80-94) 08/30/21 17:50 MCH 29.2 pg (28.0-34.0) 08/30/21 17:50 MCHC 32.6 g/dL (30.0-36.0) 08/30/21 17:50 RDW 13.9 % (12.1-15.1) 08/30/21 17:50 Plt Count 263 10^3/cmm (130-400) 08/30/21 17:50 MPV 8.7 fL (7.4-10.4) 08/30/21 17:50 Neut % (Auto) 59.0 % 08/30/21 17:50 Lymph % (Auto) 25.2 % 08/30/21 17:50 [place] % (Auto) 13.0 % 08/30/21 17:50 Eos % (Auto) 1.8 % 08/30/21 17:50 Baso % (Auto) 0.5 % 08/30/21 17:50 Neut # (Auto) 3.85 10^3/uL (1.8-7.7) 08/30/21 17:50 Lymph # (Auto) 1.6 10^3/uL (0.8-4.8) 08/30/21 17:50 [place] # (Auto) 0.9 10^3/uL (0.2-0.9) 08/30/21 17:50 Eos # (Auto) 0.1 10^3/uL (0.0-0.8) 08/30/21 17:50 Baso # (Auto) 0.0 10^3/uL (0.0-0.1) 08/30/21 17:50 Nucleated RBC % (auto) 0 % 08/30/21 17:50 Nucleated RBCs # 0.0 /100WBC 08/30/21 17:50 Sodium 140 mmol/L (136-145) 08/30/21 17:50 Potassium 4.0 mmol/L (3.5-5.1) 08/30/21 17:50 Chloride 103 mmol/L (98-107) 08/30/21 17:50 Carbon Dioxide 26 mmol/L (22-29) 08/30/21 17:50 Anion Gap 15.0 (5-19) 08/30/21 17:50 BUN 14 mg/dL (6-20) 08/30/21 17:50 Creatinine 0.8 mg/dL (0.7-1.2) 08/30/21 17:50 GFR Calculation 101.5 mL/min (90-130) 08/30/21 17:50 Glucose 92 mg/dL (65-115) 08/30/21 17:50 Calculated Osmolality 290 mOsm/kg (285-295) 08/30/21 17:50 Calcium 9.8 mg/dL (8.5-10.5) 08/30/21 17:50 Total Bilirubin 0.3 mg/dL (0.15-1.2) 08/30/21 17:50 AST 20 U/L (0-40) 08/30/21 17:50 ALT 25 U/L (0-41) 08/30/21 17:50 Alkaline Phosphatase 84 IU/L (40-130) 08/30/21 17:50 Troponin T Baseline 9 ng/L (0-15) 08/30/21 17:50 Total Protein 7.9 g/dL (6.6-8.7) 08/30/21 17:50 Albumin 4.7 g/dL (3.5-5.2) 08/30/21 17:50 Globulin 3.2 g/dL (1.3-4.6) 08/30/21 17:50 Lipase 33 U/L (13-60) 08/30/21 17:50 Urine Color Yellow (Yellow) 08/30/21 18:50 Urine Appearance Clear (CLEAR) 08/30/21 18:50 Urine pH 6.5 (5-7) 08/30/21 18:50 Ur Specific [place] 1.010 (1.005-1.030) 08/30/21 18:50 Urine Protein Neg (Negative) 08/30/21 18:50 Urine Glucose (UA) Norm (Normal) 08/30/21 18:50 Urine Ketones Negative (Negative) 08/30/21 18:50 Urine Blood Neg (Negative) 08/30/21 18:50 Urine Nitrate Negative (Negative) 08/30/21 18:50 Urine Bilirubin Neg (Negative) 08/30/21 18:50 Urine Urobilinogen Norm mg/dL (Negative) 08/30/21 18:50 Ur Leukocyte Esterase Negative (Negative) 08/30/21 18:50 EKG Data EKG 1: I personally reviewed and interpreted this EKG as follows: EKG interpretation date: 08/30/21 EKG interpretation time: 18:30 Interpretation: nsr hr [address] or t wave abnormalities qrs 94 qtc 427 Computer generated interpretation: Abdomen/Pelvis CT 08/30/21 17:37
--- NOTE | 2021-08-30 17:26 | ECG_ITS ---
[facility] Test Date: 2021-08-30 Pat Name: David Patel Department: Room: Gender: Male Telemedicine Physician: : [id number] Requested By: Tone Reynolds Order Number: [id number] Sharri MD: River Salazar M.D. Measurements Intervals [place] Rate: 74 P: 54 MN: 150 QRS: 4 QRSD: 94 T: 159 QT: 400 QTc: 444 Interpretive Statements SINUS RHYTHM POSSIBLE RIGHT VENTRICULAR CONDUCTION DELAY [RSR (QR) IN V1/V2] LEFT VENTRICULAR HYPERTROPHY AND ST-T CHANGE [VOLTAGE CRITERIA PLUS ST/T ABNORMALITY] Compared to ECG 02/17/2021 08:23:12 Left ventricular hypertrophy now present ST (T wave) deviation now present T-wave abnormality no longer present Possible ischemia no longer present Electronically Signed On 08-31-2021 16:05:11 CDT by River Salazar M.D. [id number]
--- NOTE | 2021-08-30 17:37 | CTR_ITS ---
PROCEDURE INFORMATION: Exam: CT Abdomen And Pelvis With Contrast Exam date and time: 08/30/2021 5:56 PM Age: 51 years old Clinical indication: Abdominal pain; Acute; Additional info: Abd pain TECHNIQUE: Imaging protocol: Computed tomography of the abdomen and pelvis with contrast. Sagittal and coronal reformatted images were created and reviewed. Radiation optimization: All CT scans at this facility use at least one of these dose optimization techniques: automated exposure control; mA and/or kV adjustment per patient size (includes targeted exams where dose is matched to clinical indication); or iterative reconstruction. Contrast material: OMNI 300; Contrast volume: 95 ml; Contrast route: INTRAVENOUS (IV); COMPARISON: CT abdomen pelvis w con* [id number] 02/17/2021 6:13 AM RADIATION DOSE METRICS: Total DLP (mGy-cm): 1715.94 FINDINGS: Lungs: Dependent atelectasis in the visualized lungs. Pleural spaces: No pleural effusion. Heart: Visualized cardiac chambers are unremarkable. Liver: The liver is unremarkable. Gallbladder and bile ducts: The gallbladder is unremarkable. No biliary ductal dilatation. Pancreas: The pancreas is unremarkable. No pancreatic ductal dilatation. Spleen: The spleen is unremarkable. Adrenal glands: The right and left adrenal glands are unremarkable. Kidneys and ureters: Simple cyst in the right kidney measuring 2.3 cm. Findings are stable. Subcentimeter hypodense focus in the left kidney that is too small to characterize, however likely represents a small cyst. The right and left ureters are unremarkable. Stomach and bowel: Scattered diverticula in the sigmoid colon. No evidence for diverticulitis. The stomach is collapsed, which can limit evaluation. No focal abnormality in the stomach otherwise. No acute abnormality in the small bowel. Appendix: The appendix is visualized and is unremarkable. No findings to suggest acute appendicitis. Intraperitoneal space: No free intraperitoneal air. No ascites. No loculated fluid collections to suggest an abscess. Vasculature: Minimal atherosclerotic changes in the visualized arteries. No evidence for aortic aneurysm or aortic dissection. Hepatic veins, portal veins, splenic vein, and SMV are patent. Lymph nodes: No lymphadenopathy. Urinary bladder: Diffuse, mild wall thickening of the bladder. Reproductive: Nonspecific parenchymal calcifications in the prostate gland. Bones/joints: Multilevel degenerative changes of varying severity in the visualized spine. Soft tissues: No acute abnormality in the extra-abdominal soft tissues. CT/CT abdomen pelvis w con* [id number] IMPRESSION: 1. Diffuse, mild wall thickening of the bladder. In the correct clinical setting, this may suggest cystitis. Recommend correlation with laboratory findings. Alternatively, this may be secondary to chronic outlet obstruction. 2. Scattered diverticula in the sigmoid colon. No evidence for diverticulitis. 3. Incidental/nonacute findings are listed in the report. COMMENTS: Consistent with the [place] [employer]'s Incidental Findings Committee white paper (J Am Rebecca Radiol 2018): Any incidental renal lesion less than 1 cm or classified as too small to characterize, or any incidental cystic renal lesion characterized as simple-appearing, is likely benign. No follow-up imaging is recommended for these lesions per consensus recommendations based on imaging criteria.
[2021-08-30] MEDS: iohexol 300 mg/mL 100 mL Btl IV (17:56)
[2021-08-30 18:03] LABS: Basophils % 0.5 %; Eosinophils # 0.1 10^3/uL (0.0-0.8); Eosinophils % 1.8 %; Hematocrit 47.6 % (42.0-52.0); Hemoglobin 15.5 g/dL (11.7-16.6); Lymphocytes # 1.6 10^3/uL (0.8-4.8); Lymphocytes % 25.2 %; Mean Corpuscular HGB Conc 32.6 g/dL (30.0-36.0); Mean Corpuscular Hemoglobin 29.2 pg (28.0-34.0); Mean Corpuscular Volume 89.6 fl (80-94); Mean Platelet Volume 8.7 fL (7.4-10.4); Monocytes # 0.9 10^3/uL (0.2-0.9); Neutrophils # 3.85 10^3/uL (1.8-7.7); Nucleated Red Blood Cells % 0 %; Platelet Count 263 10^3/cmm (130-400); Red Blood Count 5.31 10^6/uL (4.1-5.3); Red Cell Distribution Width 13.9 % (12.1-15.1); White Blood Count 6.5 10^3/uL (4.0-10.0)
[2021-08-30 18:24] VITALS: RESP 15; O2SAT 91
[2021-08-30] MEDS: morphine 4 mg/mL SDV 1 mL IVP (18:24)
[2021-08-30] MEDS: ondansetron 2 mg/ML SDV 2 mL 4 MG IVP (18:24)
[2021-08-30] MEDS: lactated ringers 1,000 ML 999 ML IV (18:24)
[2021-08-30] MEDS: labetalol 5 mg/mL SDV 20mL 10 MG IVP (18:24)
[2021-08-30 18:25] LABS: Alanine Aminotransferase 25 U/L (0-41); Albumin Level 4.7 g/dL (3.5-5.2); Alkaline Phosphatase 84 IU/L (40-130); Aspartate Amino Transferase 20 U/L (0-40); Blood Urea Nitrogen 14 mg/dL (6-20); Calcium 9.8 mg/dL (8.5-10.5); Carbon Dioxide 26 mmol/L (22-29); Chloride 103 mmol/L (98-107); Globulin 3.2 g/dL (1.3-4.6); Glomerular Filtration Rate 101.5 mL/min (90-130); Glucose 92 mg/dL (65-115); Lipase 33 U/L (13-60); Osmolality Calculated 290 mOsm/kg (285-295); Sodium 140 mmol/L (136-145); Total Bilirubin 0.3 mg/dL (0.15-1.2); Total Protein 7.9 g/dL (6.6-8.7)
[2021-08-30 18:26] LABS: Troponin(5th) Baseline 9 ng/L (0-15)
[2021-08-30 18:34] VITALS: BP 186/111; PULSE 72; RESP 15; TEMP 37.2; O2SAT 92
[2021-08-30 19:03] LABS: Add Urine Microscopic? NO
[2021-08-30 19:04] LABS: Bilirubin Urine Neg (Negative); Blood Urine Neg (Negative); Charge for UA Resulting for Rev; Glucose Urine UA Norm (Normal); Ketones Urine Negative (Negative); Leukocyte Esterase Urine Negative (Negative); Nitrate Urine Negative (Negative); Protein Urine Neg (Negative); Urine Appearance Clear (CLEAR); Urine Color Yellow (Yellow); Urobilinogen Urine Norm (Negative); pH Urine 6.5 (5-7)
[2021-08-30 19:13] VITALS: BP 184/119; PULSE 72; RESP 16; TEMP 37.3; O2SAT 93
[2021-08-30] MEDS: labetalol 5 mg/mL SDV 20mL 20 MG IVP (19:15)
--- NOTE | 2021-09-12 13:39 | DCPLANNER ---
sr. social media & mobile manager had message to speak with patient about getting established with a primary care physician. sr. social media & mobile manager unable to speak with patient or leave a voicemail at this time.
== END 2021-08-30 19:40 | disposition home or self-care (01) ==
PROVIDERS: Family Medicine; Emergency Provider Emergency Medicine
DX: R10.9 Unspecified abdominal pain (principal); I10 Essential (primary) hypertension
CPT/HCPCS: 74177; 80053; 81003; 83690; 84484; 85025; 93005; 96361; 96374; 96375; 99283; J2270; J2405; J3490; Q9967